=== PATIENT | female | born 2005 | race African-American/Black ===

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

== ENCOUNTER → 2024-08-04 09:09 | Outpatient (BNVA) | payer MEDICAID, SELFPAY | PROVIDERS: PCP Obstetrics & Gynecology; Visit Provider Nurse Practitioner Women's Health | DX: N91.2 Amenorrhea, unspecified (principal); Z34.91 Encounter for supervision of normal pregnancy, unspecified, first trimester | CPT/HCPCS: 76801; 80307; 81025; 84443; 84702; 85025; 86592; 86762; 86803; 86850; 86900; 87086; 87340; 87491; 87591; 87661; 87806 ==

== ENCOUNTER → 2024-09-11 10:20 | Outpatient (BNVA) | payer BC, MEDICAID, SELFPAY | PROVIDERS: Visit Provider Obstetrics & Gynecology | DX: Z34.02 Encounter for supervision of normal first pregnancy, second trimester (principal) | CPT/HCPCS: 84315 ==

== ENCOUNTER → 2024-10-13 09:11 | Outpatient (BNVA) | payer BC, MEDICAID, SELFPAY | PROVIDERS: Visit Provider Obstetrics & Gynecology | DX: O36.6 Maternal care for excessive fetal growth (principal) | CPT/HCPCS: 76805 ==

== ENCOUNTER → 2024-10-20 07:53 | Outpatient (BNVA) | payer BC, MEDICAID, SELFPAY | PROVIDERS: Visit Provider Obstetrics & Gynecology | DX: Z34.90 Encounter for supervision of normal pregnancy, unspecified, unspecified trimester (principal) | CPT/HCPCS: 84315 ==

== ENCOUNTER → 2024-11-05 09:18 | Outpatient (BNVA) | payer BC, MEDICAID, SELFPAY | PROVIDERS: Visit Provider Nurse Practitioner Women's Health | DX: O09.A0 Supervision of pregnancy with history of molar pregnancy, unspecified trimester (principal) | CPT/HCPCS: 84315 ==

== ENCOUNTER → 2024-12-17 13:15 | Outpatient (BNVA) | payer BC, MEDICAID, SELFPAY | PROVIDERS: Visit Provider Obstetrics & Gynecology | DX: O09.A0 Supervision of pregnancy with history of molar pregnancy, unspecified trimester (principal) | CPT/HCPCS: 82950; 84315; 85025 ==

== ENCOUNTER → 2024-12-22 10:20 | Outpatient (BNVA) | payer BC, MEDICAID, SELFPAY | PROVIDERS: Visit Provider Obstetrics & Gynecology | DX: Z34.90 Encounter for supervision of normal pregnancy, unspecified, unspecified trimester (principal) | CPT/HCPCS: 84315 ==

== ENCOUNTER → 2024-12-24 10:50 | Outpatient (BNVA) | payer BC, MEDICAID, SELFPAY | PROVIDERS: Visit Provider Obstetrics & Gynecology | DX: Z34.90 Encounter for supervision of normal pregnancy, unspecified, unspecified trimester (principal); Z3A.33 33 weeks gestation of pregnancy | CPT/HCPCS: 76816 ==

== ENCOUNTER 2025-02-23 15:00 | Inpatient (IN) | payer BC, MEDICAID, SELFPAY ==
[2025-02-23] VITALS (18 sets, daily range): BP systolic 117–141; BP diastolic 57–92; PULSE 69–86; RESP 16–17; TEMP 36.8–37.1; BMI 38.5
[2025-02-23 15:48] LABS: Hematocrit 31.0 % (36-47); Hemoglobin 9.10 g/dL (12.4-14.8); Mean Corpuscular HGB Conc 29.4 g/dL (30-55); Mean Corpuscular Hemoglobin 21.7 pg (27-33); Mean Corpuscular Volume 74.0 fl (85-98); Nucleated Red Blood Cells % 0 %; Platelet Count 632 10^3/cmm (157-399); Red Blood Count 4.19 10^6/uL (3.85-5.65); White Blood Count 14.52 10^3/uL (4.5-13.0)
[2025-02-23] MEDS: penicillin g potassium 5,000,000 UNIT in sodium chloride 0.9% (plus) 100 ML 100 UNIT IV (17:06)
--- NOTE | 2025-02-23 17:19 | PM.OBGYHP ---
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 The patient has not had any significant complications during this . The patient initially started care with Dr. Aviles before transferring care at approximately 31 weeks. lab work was unremarkable. Patient is GBS positive. No other concerns. Present Details : 3 Para: 0 Labs Rubella: Immune RPR: Negative GBS: Positive L&D/Induction Specific History Indication for induction OB: post dates Review of Systems Const: Denies: fever(s) Card: Denies: chest pain Resp: Denies: dyspnea GI: Denies: nausea, vomiting, diarrhea or constipation : Denies: dysuria, genital pruritis, vaginal bleeding, vaginal discharge or pelvic pain Skin/Breast: Denies: breast tenderness Neuro: Denies: headache(s) Psych: Denies: anxiety or depression Medications/Allergies Home Medications ?Medication ?Instructions ?Recorded ?Confirmed ?Last Taken ?Type No Known Home Medications 02/23/25 02/23/25 Unknown History Allergies Allergy/AdvReac Type Severity Reaction Status Date / Time No Known Allergies Allergy Verified 12/22/24 10:16 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: Medical History (Updated 02/23/25 @ 17:29 by Yandel Mukherjee MD) Complete hydatidiform mole Surgical History History of hysteroscopy H/O dilation and curettage Family History Mother Diabetes Hypertension Denies family history of Colon cancer Ovarian cancer Prostate cancer Heart disease Hypercholesteremia Breast cancer Uterine cancer Thyroid disease Stroke Social History Smoking and tobacco/nicotine status: former use of tobacco/nicotine (quit 08/2023) History History History 2 Term 0 0 Miscarriages/Ectopic 1 Living Children 0 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 Estimated Delivery Date Method Current WG Current Estimate 02/25/25 LMP (Certain) 39w 5d Other Estimates 02/21/25 Ultrasound #1 40w 2d Specific Issues/Plans HX OF MOLAR Vitals/I&O/Wt Last Vital Signs Temp 98.7 F 02/23/25 17:06 Pulse 71 02/23/25 17:16 Resp 16 02/23/25 16:38 BP 124/84 02/23/25 17:16 O2 Del Method Room Air 02/23/25 15:00 Weight last 48 hrs Weight 111.584 kg Physical Exam Const: COMMON NORMALS: no acute distress Resp: COMMON NORMALS: normal respiratory effort and No retractions Cardio: COMMON NORMALS: no JVD, regular rate and regular rhythm GI: OTHER: Gravid uterus Extremity: COMMON NORMALS: no clubbing, cyanosis or edema Neuro: COMMON NORMALS: patient oriented x3, moves all extremities, no focal motor deficits and no sensory deficits noted Psych: COMMON NORMALS: mental status grossly normal and cooperative Skin: COMMON NORMALS: no rashes or lesions noted Data 02/23/25 15:25 Results Labs OB ([facility]): Obstetrics US 12/24/24 Blood Type O Positive Today Antibody Screen Negative Today Hct, (36-47) 31.0 % L Today Hgb, (12.4-14.8) 9.10 g/dL L Today Rho(D) Type Rh positive Today Plt Count, (157-399) 632 10^3/cmm H Today Hep Bs Antigen, (Nonreactive) Non-reactive 08/04/24 Hepatitis C Antibody, (Nonreactive) Non-reactive 08/04/24 Rubella IgG Antibody, (0.0-10.0) 18.2 IU/mL H 08/04/24 RPR, (Nonreactive) Nonreactive 08/04/24 HIV 1&2 Ab & HIV 1 Ag, (Non-Reactiv) Non-reactive 08/04/24 TSH, (0.27-4.20) 1.19 uIU/mL 08/04/24 Free T4, (0.93-1.60) 1.78 ng/dL H 10/05/23 Glucose 1 Hr 50 gm, (85-140) 102 mg/dL 12/17/24 Ser , Semi-Qnt 91982.00 mIU/mL 08/04/24 HCG, Qual, (Negative) Positive H 08/04/24 Urine Opiates Screen, (Negative) Negative ng/mL 08/04/24 Ur Barbiturates Screen, (Negative) Negative ng/mL 08/04/24 Ur Phencyclidine Scrn, (Negative) Negative ng/mL 08/04/24 Ur Amphetamines Screen, (Negative) Negative ng/mL 08/04/24 U Benzodiazepines Scrn, (Negative) Negative ng/mL 08/04/24 Urine Cocaine Screen, (Negative) Negative ng/mL 08/04/24 U Marijuana (THC) Screen, (Negative) Negative ng/mL 08/04/24 Micro Urine Specimen 08/04/24 A&P Assessment and plan 1. Term : 2. 40 weeks gestation of : Plan on proceeding with induction of labor using Cytotec. Consent was obtained. All questions answered. Proceed with routine labor management otherwise. 3. GBS (group B Streptococcus carrier), +RV culture, currently : Proceed with penicillin PDMP PDMP Reviewed: Not Reviewed Attestations Medical Necessity Statement*: Patient admitted for induction of labor. Anticipate 2 midnight stay. Coding Level of Care Code Acute Code for Chg Fwd Diagnoses Term Z34.90 40 weeks gestation of Z3A.40 GBS (group B Streptococcus carrier), +RV culture, currently O99.820
[2025-02-23] MEDS: PENICILLIN G POTASSIUM 2,500,000 UNIT/50 ML BAG 50 UNIT IV (21:10)
[2025-02-24] VITALS (94 sets, daily range): BP systolic 98–157; BP diastolic 54–93; PULSE 59–105; RESP 15–17; TEMP 36.5–36.9; O2SAT 99–100
[2025-02-24] MEDS: PENICILLIN G POTASSIUM 2,500,000 UNIT/50 ML BAG 50 UNIT IV ×5 (01:21→16:56)
[2025-02-24] MEDS: oxytocin 30 UNIT/500 ML BAG IV (06:38)
--- NOTE | 2025-02-24 07:41 | P.PN_ITS ---
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 The patient received 3 doses of Cytotec and is currently on Pitocin. The patient is anna every 5 to 6 minutes with increasing intensity since starting Pitocin. Patient's last vaginal check was 3 cm dilation. Patient's vital signs have remained stable and there have been no other concerns. Labor: Station: -3 Amniotic Membrane Status: Intact Monitor Mode: External Contraction Pattern: Regular Vitals/I&O/Wt Last Vital Signs Temp 98.2 F 02/24/25 03:34 Pulse 78 02/24/25 07:38 Resp 16 02/24/25 05:13 BP 128/67 02/24/25 07:38 O2 Del Method Room Air 02/23/25 19:50 02/23/25 02/24/25 02/24/25 22:59 06:59 14:59 Intake Total 150 / 150 50.267 / 200.267 0.95 / 0.95 Balance 150 / 150 50.267 / 200.267 0.95 / 0.95 Weight last 48 hrs Weight 111.584 kg Physical Exam 2 Const: COMMON NORMALS: no acute distress and patient oriented x3 Neck/C-Spine: COMMON NORMALS: no JVD Resp: COMMON NORMALS: normal respiratory effort and No retractions Cardio: COMMON NORMALS: no JVD, regular rate and regular rhythm RATE: r egular rate RHYTHM: regular rhythm GI: OTHER: Gravid uterus Extremity: COMMON NORMALS: no clubbing, cyanosis or edema Neuro: COMMON NORMALS: patient oriented x3, moves all extremities, no focal motor deficits and no sensory deficits noted Psych: COMMON NORMALS: mental status grossly normal and cooperative Skin: COMMON NORMALS: no rashes or lesions noted GENERAL SKIN EXAM: no rashes or lesions noted Data 02/23/25 15:25 A&P Assessment and plan 1. Term : 2. 40 weeks gestation of : Continue routine labor management. Continue high-dose Pitocin. 3. GBS (group B Streptococcus carrier), +RV culture, currently : Continue GBS prophylaxis PDMP PDMP Reviewed: Not Reviewed Attestations 2 Medical Necessity Statement*: Patient was admitted for induction of labor. Anticipate 2 midnight stay. Coding Level of Care Code Acute Code for Chg Fwd Diagnoses Term Z34.90 40 weeks gestation of Z3A.40 GBS (group B Streptococcus carrier), +RV culture, currently O99.820
[2025-02-24] MEDS: fentaNYL 50 mcg/mL INJ 2mL IVP ×2 (09:57→11:12)
[2025-02-24] MEDS: ondansetron 2 mg/ML SDV 2 mL 4 MG IVP (10:33)
--- OUTSIDE RECORDS SUMMARY | 2025-02-24 11:27 | XMS_ITS | Data Portability ---
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 dcrase 12/31/2024 02/22/20 1 Pre- Flowsheet Flowsheet Date 12/31/2024 Wilson Score Blood Edema Fundus Height Fundus Units Glucose Ketones Leukocytes Nitrite Labor Signs Protein Cervic Dilation Cervic Effacement Cervic Station 32 cm Type Weight in lbs Pre/Post Dialysis Refused Weight 238.434625349055 BP Diastolic BP Location Tested BP Systolic BP Type 65 R arm 132 sitting Fetus Heart Rate Present A 150 Fetus Movement A Yes Comments Flowsheet Date 01/28/2025 Wilson Score Blood Edema Fundus Height Fundus Units Glucose Ketones Leukocytes Nitrite Labor Signs Protein Cervic Dilation Cervic Effacement Cervic Station neg 1+ 39 cm none none Negative neg Type Weight in lbs Pre/Post Dialysis Refused With clothes 236.477464814152 BP Diastolic BP Location Tested BP Systolic BP Type 62 R arm 122 sitting Fetus Heart Rate Present A 155 Fetus Movement A Yes Comments Flowsheet Date 02/03/2025 Wilson Score Blood Edema Fundus Height Fundus Units Glucose Ketones Leukocytes Nitrite Labor Signs Protein Cervic Dilation Cervic Effacement Cervic Station Type Weight in lbs Pre/Post Dialysis Refused BP Diastolic BP Location Tested BP Systolic BP Type Fetus Heart Rate Present Fetus Movement Comments Flowsheet Date 02/04/2025 Wilson Score Blood Edema Fundus Height Fundus Units Glucose Ketones Leukocytes Nitrite Labor Signs Protein Cervic Dilation Cervic Effacement Cervic Station none 38 cm none none Negative trace 1cm 30% -3 Type Weight in lbs Pre/Post Dialysis Refused With clothes 242.853171722340 BP Diastolic BP Location Tested BP Systolic BP Type 68 L arm 112 sitting Fetus Heart Rate Present A 137 Fetus Movement A Yes Comments vaginal itching and urinary frequency Flowsheet Date 02/11/2025 Wilson Score Blood Edema Fundus Height Fundus Units Glucose Ketones Leukocytes Nitrite Labor Signs Protein Cervic Dilation Cervic Effacement Cervic Station 1cm 50% -3 Type Weight in lbs Pre/Post Dialysis Refused Weight 244.756872682327 BP Diastolic BP Location Tested BP Systolic BP Type 84 120 Fetus Heart Rate Present A 140 Fetus Movement A Yes Comments Flowsheet Date 02/18/2025 Wilson Score Blood Edema Fundus Height Fundus Units Glucose Ketones Leukocytes Nitrite Labor Signs Protein Cervic Dilation Cervic Effacement Cervic Station 39 cm 2cm 70% -3 Type Weight in lbs Pre/Post Dialysis Refused Weight 250.576696429911 BP Diastolic BP Location Tested BP Systolic BP Type 86 124 Fetus Heart Rate Present A 133 Fetus Movement A Yes Comments Menstrual History Last Menstrual Date Menses Monthly On Bcp Conception Prior Menses Frequency Hcg Plus Date Menarche Onset Age 0105/31/2024 Delivery Information Delivery Date Delivery Type Labor Anesthesia Weeks Gestation Incision Type Labor Labor Length Hrs Delivered By Post Complications Tubal Sterilization Discharge Date Comments Discharge Information Feeding Method Contraceptive Method Maternal HG B and HCT Levels
--- OUTSIDE RECORDS SUMMARY | 2025-02-24 11:27 | XMS_ITS | Continuity of Care Document ---
Author Organization [facility] - Cj Leyva [facility] Gallo Zamarripa, [facility] ([facility]) Address [address] [place] [address] Care Team Providers Care Cleaning Matron Name Role Phone SERENA MUKHERJEE Primary Care Provider [phone] Assessment Encounter Date Assessment Date Assessment LastModified by Organization Details LastModified Time 02/18/2025 02/18/2025 19-year-old female with a history [...] available Not available Not available Lab None recorded . Referral None recorded . Procedures None recorded . Surgeries None recorded . Imaging None recorded . Medication Orders None recorded . Patient TargetsNo targets recorded. Patient Instructions Encounter Date Encounter Id Patient Instructions Last Modified By Organization Details Last Modified Time 02/18/2025 [id number] - Keep track of movements and report [...] GROUP B CULTU RE Micro Numbe r: [id number] Test Statu s: Final Speci men [...] the anal sphin cter) . Not Available [facility] [address] [place], [address], 01/30/2025 12:30:56 02/10/2002/03/2025 [place], obste tric, 3rd trime ster No observ ation record ed. [email or web address] [place], [address], 02/09/2025 12:50:33 Result Notes None recorded. Problems Name Problem SNOMED Code Status Onset Date Resolution Date Notes Provider Name and Address Organization Details Recorded Time 87780254 Active 025 [facility]07 Gestation period, 32 weeks 0459347 Active 025 Serena Mukherjee MD [address] [place], [phone] , [facility] 5 10:37:13 Gestation period, 32 weeks 2470411 Active Juan A Mukherjee MD [address] [place] [address], [phone] , [facility] 5 10:37:13 Gestation period, 36 weeks 37565452 Active Juan A Mukherjee MD [address] [place] [address], [address] [place] [address] , [facility] L[facility] 5 13:45:43 Gestation period, 37 weeks 81881476 Active Juan A Mukherjee MD [address] [place] [address], [phone] , [facility] 5 09:36:19 Gestation period, 39 weeks 75106343 Active Juan A Mukherjee MD [address] [place] [address], [phone] , [facility] 5 10:15:23 Problem Notes None recorded. Procedures Surgical History Date Name Laterality Status Provider Name and Address Organization Details Recorded Time 11/05/19 24 Cholecystectomy completed Libby Pereira [facility], LRonaldoLRonaldoCRonaldo 12/31/2024 09:51:12 Imaging Results None recorded. Procedure Notes None recorded. Medical Equipment None Reported. Allergies No known drug allergies Medications Name Sig Start Date Stop Date Status Note LastModified by Organization Details LastModified Time metoclopramid e 5 mg tablet TAKE ONE TABLET BY MOUTH DAILY 12/31 completed Not Available Not Available Not Available Vitals Date Recorded Body height Body mass index (BMI) [Percentile] Per age and sex Body mass index (BMI) Body weight Body temperature Oxygen saturation Oxygen saturation in Arterial blood by Pulse oximetry Heart rate Systolic And Diastolic Provider Name and Address Organization Details Last Updated DateTime 5 170.18 cm 98 % 39.2 kg/m2 241314. 09 g 97.4 [degF] 99 % 99 % 81 /min 124/86 mm[Hg] Viji Freeman [facility] 09:30:46 Social History Question Answer Notes LastModified by Organization Details LastModified Time Tobacco Smoking Status Never Smoker [facility] 12/31/2024 09:44:26 If You Are , What Was Your Level Of Alcohol Consumption Prior To ? None Information not available 12/31/2024 Are You Blind Or Do You Have Difficulty Seeing? No Information not available 12/31/2024 What Is Your Level Of Caffeine Consumption? Moderate Information not available 12/31/2024 Are You A Caregiver? No Information not available 12/31/2024 What Type Of Lime Vat Tender Do You Use? None Information not available 12/31/2024 Are You Deaf Or Do You Have Serious Difficulty Hearing? No Information not available 12/31/2024 What Is The Highest Grade Or Level Of School You Have Completed Or The Highest Degree You Have Received? [id number] Information not available 12/31/2024 Have There Been [...] Of Your Most Recent Tobacco Screening? 02/18/2025 [email or web address] Information not available 02/18/2025 How Hard Is [...] Functional Status Question Answer Note LastModified by OrganFindTheBestat ion Details LastModified Time Do you use [...] Recorded Time Influenza, split virus, trivalent, PF [facility] 02/04/2025 10:09:59 Hep B, unspecified formulation 5 completed Not Available [facility] 02/18/2025 09:44:53 Hep B, unspecified formulation 5 completed Not Available [facility] 02/18/2025 09:44:53 DTaP 5 completed Not Available [facility] 02/18/2025 09:44:53 Hib (PRP-T) 5 completed Not Available [facility] 02/18/2025 09:44:53 IPV 5 completed Not Available [facility] 02/18/2025 09:44:53 pneumococcal conjugate PCV 7 5 completed Not Available [facility] 02/18/2025 09:44:53 DTaP 5 completed Not Available [facility] 02/18/2025 09:44:53 Hib (PRP-T) 5 completed Not Available [facility] 02/18/2025 09:44:53 IPV 5 completed Not Available [facility] 02/18/2025 09:44:53 pneumococcal conjugate PCV 7 5 completed Not Available [facility] 02/18/2025 09:44:53 DTaP 6 completed Not Available [facility] 02/18/2025 09:44:53 Hib (PRP-T) 6 completed Not Available [facility] 02/18/2025 09:44:53 IPV 6 completed Not Available [facility] 02/18/2025 09:44:53 pneumococcal conjugate PCV 7 6 completed Not Available [facility] 02/18/2025 09:44:53 Hep B, unspecified formulation 6 completed Not Available [facility] 02/18/2025 09:44:53 Hib (PRP-T) 6 completed Not Available [facility] 02/18/2025 09:44:53 MMR 6 completed Not Available [facility] 02/18/2025 09:44:53 pneumococcal conjugate PCV 7 6 completed Not Available [facility] 02/18/2025 09:44:53 DTaP 6 completed Not Available [facility] 02/18/2025 09:44:53 varicella 6 completed Not Available [facility] 02/18/2025 09:44:53 Hep A, unspecified formulation 6 completed Not Available [facility] 02/18/2025 09:44:53 influenza, unspecified formulation 6 completed Not Available [facility] 02/18/2025 09:44:53 Hep A, unspecified formulation 7 completed Not Available [facility] 02/18/2025 09:44:53 influenza, unspecified formulation 7 completed Not Available [facility] 02/18/2025 09:44:53 DTaP-IPV 9 completed Not Available [facility] 02/18/2025 09:44:53 MMR 9 completed Not Available [facility] 02/18/2025 09:44:53 varicella 9 completed Not Available [facility] 02/18/2025 09:44:53 influenza, unspecified formulation 9 completed Not Available [facility] 02/18/2025 09:44:53 Novel [id number] 9 completed Not Available [facility] 02/18/2025 09:44:53 Novel [id number] 9 completed Not Available [facility] 02/18/2025 09:44:53 influenza, split (incl. purified surface antigen) 0 completed Not Available [facility] 02/18/2025 09:44:53 Past Encounters Encounter ID Performer Location Encounter Start Date Encounter Closed Date Diagnosis/Indication Diagnosis SNOMED-CT Code Diagnosis ICD10 Code Diagnosis IMO Codes Diagnosis Note [id number] Serena Mukherjee MD [facility] ([facility]) [address] [place] [phone] 01/28/2025 10:18:13 01/28/2025 11:43:38 Third trimester 84140509 Z34.93 850316 Anticipato ry guidance provided. Labor precaution s given. GBS swab obtained today. Encouraged the patient to come weekly until delivery at this time. Recommende d that we proceed with growth ultrasound . Gestation period, 36 weeks 80050900 Z3A.36 7651116 [id number] Serena Mukherjee MD [facility] ([facility]) [address] [place] [phone] 02/03/2025 12:50:18 02/04/2025 16:32:00 [id number] Serena Mukherjee MD [facility] ([facility]) [address] [place] [phone] 02/04/2025 09:20:23 02/04/2025 10:18:51 Third trimester 59040846 Z34.93 904875 - Provide anticipato ry guidance and discuss labor precaution s. - Schedule regular weekly visits until delivery. Gestation period, 37 weeks 89935046 Z3A.37 9006417 Requires i nfluenza virus vaccination 745138339 Z23 5405306 Group B St reptococcus carrier 2271755180 103 Z22.153 8413338 - Administer intravenou s antibiotic s during labor to prevent infection. [id number] Serena Mukherjee MD [facility] ([facility]) [address] [place] [phone] 02/11/2025 10:11:38 02/11/2025 10:57:01 Normal in multigravida 0304761740 73635 Z34.80 02866040 - lab work and ultrasound s reviewed and normal.- Cervical exam shows initial dilation and effacement .- Anticipate d guidance provided; follow-up scheduled unless new symptoms arise. [id number] Serena Mukherjee MD [facility] ([facility]) [address] [place] [phone] 02/18/2025 09:25:35 02/18/2025 09:55:00 Normal in multigravida 1072230344 81894 Z34.80 77564866 - Continue routine care. - Consider induction due to size; cervix 2 cm dilated, 70% effaced. - Reassure regarding vertex position; monitor status. - Regular follow-up and monitoring advised. Gestation period, 39 weeks 57166304 Z3A.39 8749014 IOL scheduled for next week. Health Concerns Section Related Observation LastModified by Organization Detai ls LastModified Time None Recorded Concern Status LastModified by Organization Details LastModified Time None Recorded Payers Encounter Date Sequence Insurance Name Policy Number Policy Town[place] Covered Member ID Townsend Member ID Guarantor Name 02/18/2025 2 [facility] (MEDICAID HMO) Bryant Resendiz [id number] Bryant Resendiz 02/18/2025 1 [employer] [id number] Robin Green [id number] Bryant Resendiz Notes Date Note Type Note Provider Name and Address Organization Details Recorded Time 02/18/2025 text/html jr ob routineRep orted by PatientHPIFor associated symptoms, patient reportscramping,vagin al discharge,frequency,n ausea,diarrhea/loose stool, andedemabut reportsno abdominal pain,no contractions,normal movement,no [...] effacement; position is vertex. Serena Mukherjee MD [address] [place] [address], [phone], [facility] 02/18/2025 10:15:45 OBGyn Episode Ob Episode Information Episode Created Date Number of Fetuses Patient Bloodtype Patient rh Status Prepregnancy Weight lbs Domestic Partner Domestic Partner Phone Father Name Fixed Income Portfolio Manager Status 01/01/20 1 OPEN Fetus Data First Name Last Name Admitted to NICU Weight (g) Sex Living Outcome Pediatric Complications Fetus ID Race Codes Race Delivery Type [id number] Problems Problem Notes Problem Name Start Date End Date Resolution Snomed Code Not e Gestation period, 32 weeks 01/05/2025 77 10446 Blayne Calculation Initial Blayne Date Initial Exam [...] Days Gestation 10/14/19 22 dcrase 12/31/2024 02/22/20 25 1 Pre- Flowsheet Flowsheet Date 12/31/2024 Wilson Score Blood Edema Fundus Height Fundus Units Glucose Ketones Leukocytes Nitrite Labor Signs Protein Cervic Dilation Cervic Effacement Cervic Station 32 cm Type Weight in lbs Pre/Post Dialysis Refused Weight 238.354177967321 BP Diastolic BP Location Tested BP Systolic [...] in lbs Pre/Post Dialysis Refused With clothes 236.073265121514 BP Diastolic BP Location Tested BP Systolic [...] in lbs Pre/Post Dialysis Refused With clothes 242.059872466502 BP Diastolic BP Location Tested BP Systolic [...] Weight in lbs Pre/Post Dialysis Refused Weight 244.234945466573 BP Diastolic BP Location Tested BP Systolic BP Type 84 120 Fetus Heart Rate Present A 140 Fetus Movement A Yes Comments Flowsheet Date 02/18/2025 Wilson Score Blood Edema Fundus Height Fundus Units Glucose Ketones Leukocytes Nitrite Labor Signs Protein Cervic Dilation Cervic Effacement Cervic Station 39 cm 2cm 70% -3 Type Weight in lbs Pre/Post Dialysis Refused Weight 250.463148424583 BP Diastolic BP Location Tested BP Systolic [...]
[2025-02-24] MEDS: ROPivacaine premix 200 MG/100 ML PREMIX 10 MG EPIDURAL ×2 (11:59→16:55)
--- NOTE | 2025-02-24 18:23 | PM.DELIVERY ---
Delivery Note: Date of delivery: February 24, 2025 Pre-delivery diagnoses: Term intrauterine Post-delivery diagnoses: Same, viable female Procedure: Spontaneous vaginal delivery Op report anesthesia: Epidural Estimated blood loss (mL): 200 Pre-Delivery Course: This is a 19-year-old G2, P1 that presented at 40 weeks 2 days for induction of labor. The patient started off of Cytotec and completed dilation with Pitocin. Delivery: Once patient was completely dilated the patient was placed into the normal lithotomy position where she started pushing with each contraction. After several rounds of pushing the patient delivered 's head followed by shoulders and body. The infant was then placed onto mother's abdomen and after delay the cord was clamped and cut. Blood was obtained. Placenta was then delivered soon after. Review of the perineum showed a small second-degree perineal tear that was repaired with 2-0 Vicryl. During the procedure the patient was stable and bleeding was controlled. Post-Delivery Status: Stable History History History 2 Term 0 0 Miscarriages/Ectopic 1 Living Children 0 A&P Assessment and plan 1. Normal spontaneous vaginal delivery: Proceed with routine care. PDMP PDMP Reviewed: Not Reviewed Coding Level of Care Code Acute Code for Chg Fwd Diagnoses Normal spontaneous vaginal delivery O80
[2025-02-24] MEDS: benzocaine-menthol 78 gm Canister 1 SPRAY TOPICAL (21:08)
[2025-02-25] VITALS (8 sets, daily range): BP systolic 107–135; BP diastolic 60–86; PULSE 65–87; RESP 15–16; TEMP 36.4–36.6; O2SAT 97–99
[2025-02-25] MEDS: PRENATAL VIT NO.130/IRON/FOLIC 1 EACH TABLET PO (06:03)
[2025-02-25 07:10] LABS: Hematocrit 30.0 % (36-47); Hemoglobin 8.80 g/dL (12.4-14.8); Mean Corpuscular HGB Conc 29.3 g/dL (30-55); Mean Corpuscular Hemoglobin 21.7 pg (27-33); Mean Corpuscular Volume 74.1 fl (85-98); Platelet Count 563 10^3/cmm (157-399); Red Blood Count 4.05 10^6/uL (3.85-5.65); White Blood Count 19.40 10^3/uL (4.5-13.0)
--- NOTE | 2025-02-25 07:37 | PM.OBGYDC ---
Discharge Providers INTEGRATION AIDE Date of Admission: 02/24/25 08:30 Date of Discharge: 02/26/25 Attending Provider at Admission: Yandel Mukherjee MD Attending Provider at Discharge: Yandel Mukherjee MD Primary Care Provider: Yandel Mukherjee MD Diagnoses at Discharge Discharge Diagnosis 1. Normal spontaneous vaginal delivery: Reason for Visit Reason for Visit: Induction Hospital Course Hospital Course This is a 19-year-old that presented at 40 weeks 2 days for induction of labor due to postdates. Patient underwent successful induction using Cytotec followed by Pitocin. The patient delivered a viable infant female vaginally without complication. Patient had a small second-degree perineal tear that was repaired. care was unremarkable. Information Peripartum Data: Delivery Method: Vaginal Laceration description: Perineal - 2nd Degree Physical Exam Const: COMMON NORMALS: no acute distress and patient oriented x3 Neck/C-Spine: COMMON NORMALS: no JVD Resp: COMMON NORMALS: normal respiratory effort and No retractions Cardio: COMMON NORMALS: no JVD, regular rate and regular rhythm RATE: regular rate RHYTHM: regular rhythm GI: OTHER: Uterus firm and below umbilicus Extremity: COMMON NORMALS: no clubbing, cyanosis or edema Neuro: COMMON NORMALS: patient oriented x3, moves all extremities, no focal motor deficits and no sensory deficits noted Psych: COMMON NORMALS: mental status grossly normal and cooperative Skin: COMMON NORMALS: no rashes or lesions noted GENERAL SKIN EXAM: no rashes or lesions noted Urinary Catheter Management: Conklin Latex: Cath Placed During This Visit: yes, but has since been removed by the nurse Reason for Continuing Indwelling Catheter: Decision to DC Catheter Urinary Catheter Date of Insertion: 02/24/25 Urinary Catheter Time of Insertion: 12:32 Date Urinary Catheter Removed: 02/24/25 Time Urinary Catheter Discontinued: 17:30 History History History 2 Term 0 0 Miscarriages/Ectopic 1 Living Children 0 Discharge Data Studies Completed and Pending Laboratory Results WBC 19.40 10^3/uL (4.5-13.0) H 02/25/25 05:56 RBC 4.05 10^6/uL (3.85-5.65) 02/25/25 05:56 Hgb 8.80 g/dL (12.4-14.8) L 02/25/25 05:56 Hct 30.0 % (36-47) L 02/25/25 05:56 MCV 74.1 fl (85-98) L 02/25/25 05:56 MCH 21.7 pg (27-33) L 02/25/25 05:56 MCHC 29.3 g/dL (30-55) L 02/25/25 05:56 RDW 18.4 % (12.1-15.1) H 02/25/25 05:56 Plt Count 563 10^3/cmm (157-399) H 02/25/25 05:56 MPV 9.1 fL (7.4-10.4) 02/25/25 05:56 Neut % (Auto) 74.5 % 02/23/25 15:25 Lymph % (Auto) 15.8 % 02/23/25 15:25 [place] % (Auto) 7.3 % 02/23/25 15:25 Eos % (Auto) 0.8 % 02/23/25 15:25 Baso % (Auto) 0.2 % 02/23/25 15:25 Neut # (Auto) 10.82 10^3/uL (1.8-8.0) H 02/23/25 15:25 Lymph # (Auto) 2.3 10^3/uL (1.5-6.5) 02/23/25 15:25 [place] # (Auto) 1.1 10^3/uL (0.2-0.9) H 02/23/25 15:25 Eos # (Auto) 0.1 10^3/uL (0.0-0.8) 02/23/25 15:25 Baso # (Auto) 0.0 10^3/uL (0.0-0.1) 02/23/25 15:25 Nucleated RBC % (auto) 0 % 02/23/25 15:25 Nucleated RBCs # 0.0 /100WBC 02/23/25 15:25 Blood Type O Positive 02/23/25 15:25 Rho(D) Type Rh positive 02/23/25 15:25 Antibody Screen Negative 02/23/25 15:25 Vitals Last Vital Signs Temp 97.9 F 02/25/25 05:24 Pulse 77 02/25/25 05:24 Resp 16 02/25/25 05:24 BP 107/60 02/25/25 05:24 Pulse Ox 97 02/25/25 05:24 O2 Del Method Room Air 02/25/25 05:24 Results Labs OB ([facility]): Obstetrics US 12/24/24 Blood Type O Positive 02/23/25 Antibody Screen Negative 02/23/25 Hct, (36-47) 30.0 % L 02/25/25 Hgb, (12.4-14.8) 8.80 g/dL L 02/25/25 Rho(D) Type Rh positive 02/23/25 Plt Count, (157-399) 563 10^3/cmm H 02/25/25 Hep Bs Antigen, (Nonreactive) Non-reactive 08/04/24 Hepatitis C Antibody, (Nonreactive) Non-reactive 08/04/24 Rubella IgG Antibody, (0.0-10.0) 18.2 IU/mL H 08/04/24 RPR, (Nonreactive) Nonreactive 08/04/24 HIV 1&2 Ab & HIV 1 Ag, (Non-Reactiv) Non-reactive 08/04/24 TSH, (0.27-4.20) 1.19 uIU/mL 08/04/24 Free T4, (0.93-1.60) 1.78 ng/dL H 10/05/23 Glucose 1 Hr 50 gm, (85-140) 102 mg/dL 12/17/24 Ser , Semi-Qnt 36569.00 mIU/mL 08/04/24 HCG, Qual, (Negative) Positive H 08/04/24 Urine Opiates Screen, (Negative) Negative ng/mL 08/04/24 Ur Barbiturates Screen, (Negative) Negative ng/mL 08/04/24 Ur Phencyclidine Scrn, (Negative) Negative ng/mL 08/04/24 Ur Amphetamines Screen, (Negative) Negative ng/mL 08/04/24 U Benzodiazepines Scrn, (Negative) Negative ng/mL 08/04/24 Urine Cocaine Screen, (Negative) Negative ng/mL 08/04/24 U Marijuana (THC) Screen, (Negative) Negative ng/mL 08/04/24 Micro Urine Specimen 08/04/24 Discharge Plan Discharge Patient Disposition: Home Condition: Stable Prescriptions: No Action No Known Home Medications Discharge Order = DC NOW: Discharge Order (Routine); Ordered 02/25/25 Ordered By: Yandel Mukherjee Referrals: Yandel Mukherjee MD [Primary Care Provider, [facility]] - 04/08/25 10:30 am Referral Note: Your appointment with Dr. Mukherjee is scheduled for SundayApril 08 @10:30 Discharge Diet: Usual diet Discharge Activity: Limit activity as instructed Patient Instructions: Depression (DC), Bleeding (DC), Opioid Safety (DC), Preeclampsia and Eclampsia After Delivery (GEN), Hemorrhage (DC), OB Discharge Report, OB Food/Drug Interaction Guide, Opioid Safety, OB Home Care, OB Vaginal Deliveries, Patient Portal & Allan Instructions, Abnormal Bleeding Discharge Attestations INTEGRATION AIDE Time Spent in Discharge Care*: less than 30 min Coding Level of Care Code Acute Code for Chg Fwd Diagnoses Normal spontaneous vaginal delivery O80
--- NOTE | 2025-02-25 11:59 | ANE.PACU2 ---
Inpatient post-anesthesia follow up: Airway intact: Yes Vital signs: Temperature 98 F Pulse Rate 87 Respiratory Rate 16 Blood Pressure 135/72 Pulse Oximetry 98 Oxygen Delivery Me thod Room Air Oxygen Flow Rate Fraction of Inspir ed Oxygen Hydration adequate: Yes Nausea and vomiting: No Pain level: 1 Mental status: Baseline Epidural Start/End: Epidural Start Date: 02/24/25 Epidural Start Time: 11:50 Epidural End Date: 02/24/25 Epidural End Time: 19:56
== END 2025-02-25 18:52 | disposition home or self-care (01) | DRG 807 ==
PROVIDERS: Admitting Provider Family Medicine; PCP Family Medicine; Visit Provider Family Medicine
DX: O48.0 Post-term pregnancy (principal); Z37.0 Single live birth; Z3A.40 40 weeks gestation of pregnancy; O99.824 Streptococcus B carrier state complicating childbirth; O70.1 Second degree perineal laceration during delivery
CPT/HCPCS: 36415; 51702; 59025; 59409; 85025; 85027; 86850; 86900; 99211; G0378; G0379; J2405; J2540; J2590; J2795; J3010; J7120; J7121; J9999